=== PATIENT | male | born 1945 | race Caucasian/White ===

== ENCOUNTER 2023-11-10 13:16 | Emergency (ER) | payer MEDICARE, BC, SELFPAY ==
[2023-11-10 13:17] VITALS: BP 169/80
--- NOTE | 2023-11-10 15:18 | ED.GENMED ---
History of Present Illness
<Majo Swanson PA-C - Last Filed: 11/10/23 21:16>
General
Chief Complaint: DVT/Possible Blood Clot
Source: patient
Exam Limitations: none
Time Seen by Provider: 11/10/23 14:18
Nursing documentation reviewed up to this point in time: agreed with
Travel History
Have you had any contact with someone who has COVID-19?: No
Do you have any symptoms of coronavirus? Fever > 100 degrees, chills, cough, shortness of breath, sore throat, loss of taste or smell, muscle aches, or headache?: No
History of Present Illness
History of Present Illness:
Patient is a 78 old male with history hypertension, hyperlipidemia, aortic stenosis presenting for evaluation of left lower extremity pain and swelling. Patient states he initially noticed symptoms approximate 3 days ago. He states that 3 days ago
he did go for a longer walk than usual and was doing uphill/downhill lunges. Then that night following he had a 'Connex[employer] horse 'in the middle the night. Since then�he endorses pain on the medial aspect of his left calf worse with movement and
dorsiflexion of left foot. He has noticed swelling in his left lower extremity worsening over the past few days. He states pain is generally better in the morning and worse by the end of the day. Patient denies any fever, chills, chest pain,
shortness of breath. Patient denies any numbness or tingling left lower extremity. Patient did speak with his primary care provider who recommended that he come to the emergency department to rule out a blood clot.
Patient has no personal or family history of blood clots or clotting disorders. Patient denies any recent travel or recent surgery.
Past History
<Majo Swanson PA-C - Last Filed: 11/10/23 21:16>
Past History
ED Past Medical History: HTN and Hypercholesterolemia
Social History
Tobacco: Non-smoker
Review of Systems
<Majo Swanson PA-C - Last Filed: 11/10/23 21:16>
Review of Systems
Allergies reviewed?: Yes
All Other Systems: ROS reviewed and negative except as documented in HPI and ROS
Phy Exam
<Majo Swanson PA-C - Last Filed: 11/10/23 21:16>
Physical Exam
Physical Exam:
Vitals: Patient's vital signs are stable. Afebrile
General: Patient is well appearing, no acute distress. Nontoxic-appearing
Skin: Warm and dry, no rashes or lesions.
Head: Normocephalic, atraumatic
Eyes: Sclera nonicteric. EOMs intact. No nystagmus.
Throat: Protecting airway
Neck: Normal ROM, no cervical spine tenderness, no meningismus
Cardiac: Regular rate and rhythm, no murmurs.
Pulm: Normal respiratory effort, no wheezes, rales, rhonchi heard on exam.
Abdomen: No abdominal tenderness.
Extremities: 1+ pitting edema of left lower extremity with mild tenderness of left calf at medial aspect. Some firmness noted to right calf. Positive Homans' sign on left lower extremity. Great DP and PT pulses of bilateral lower extremities.
Sensation fully intact. No overlying erythema or ecchymoses of left lower extremity. Achilles intact.
Neuro: AAOx3. CN II-XII intact. No focal neurologic deficits.
Psychiatric: Normal affect.
Course
<Majo Swanson PA-C - Last Filed: 11/10/23 21:16>
Orders/Labs/Results
Orders:
Orders
11/10/23 13:22
Periph Venous Lwr Ext Left US [US Periph Venous LOWER Ext LT] Urgent
Comment:
Reason For Exam: swelling, calf pain
Vital Signs
Initial and Last Documented VS:
Initial Vital Signs
Temp Pulse Resp BP Pulse Ox
98.6 F 68 18 169/80 96
11/10/23 13:17 11/10/23 13:17 11/10/23 13:17 11/10/23 13:17 11/10/23 13:17
Last Documented Vital Signs
Temp Pulse Resp BP Pulse Ox
98.6 F 68 18 169/80 96
11/10/23 13:17 11/10/23 13:17 11/10/23 13:17 11/10/23 13:17 11/10/23 13:17
<Josh Mcpherson DO - Last Filed: 11/10/23 21:17>
Orders/Labs/Results
Orders:
Orders
11/10/23 13:22
Periph Venous Lwr Ext Left US [US Periph Venous LOWER Ext LT] Urgent
Comment:
Reason For Exam: swelling, calf pain
Vital Signs
Initial and Last Documented VS:
Initial Vital Signs
Temp Pulse Resp BP Pulse Ox
98.6 F 68 18 169/80 96
11/10/23 13:17 11/10/23 13:17 11/10/23 13:17 11/10/23 13:17 11/10/23 13:17
Last Documented Vital Signs
Temp Pulse Resp BP Pulse Ox
98.6 F 68 18 169/80 96
11/10/23 13:17 11/10/23 13:17 11/10/23 13:17 11/10/23 13:17 11/10/23 13:17
<Majo Swanson PA-C - Last Filed: 11/10/23 21:16>
MDM/Problems Addressed
Differential Diagnosis Includes:
Not limited to: DVT, dependent edema, muscular strain, muscular cramp, cellulitis
MDM/Problems Addressed:
78-year-old male presenting with left lower extremity swelling and pain worsening over the past 3 days. No known inciting injury, although patient did go for a longer walk and was doing lunges the day prior to symptom onset. No recent travel or
recent surgeries. No other DVT risk factors. No chest pain, shortness of breath. No fever or chills. Sent to rule out blood clot by PCP. Patient hypertensive, otherwise signs stable. Exam as above. Patient is very well-appearing. He does
have 1+ pitting edema of the left lower extremity with some mild tenderness and firmness noted on the medial aspect of left calf. There is no overlying erythema or warmth to suggest infectious process. No ecchymoses noted to left lower calf.
Great distal pulses in left lower extremity. Sensation fully intact. He has excellent range of motion in his left ankle against resistance, both dorsiflexion and plantarflexion. Achilles tendon intact. Will check LLE ultrasound. Will reassess
Ultrasound shows no evidence of DVT of the left lower extremity. They did note a fluid collection within the left calf likely reflecting muscle tear. This is consistent with patient's symptoms and mechanism. Discussed findings with patient.
Given patient has very minimal pain, is able to ambulate, and has great range of motion left lower extremity�do not feel splinting is necessary. Will recommend icing, elevation, rest. Return precautions discussed with patient. Patient is stable
for discharge. All questions answered
Chronic conditions affecting care:
N/A
Acute Exacerbation and/or Progression of Chronic Illness:
N/A
<Majo Swanson PA-C - Last Filed: 11/10/23 21:16>
*Radiology
Radiology exam reviewed: radiology read reviewed
*Pulse Oximetry
Patient hypoxic: no
*EKG
Interpreted by ED Provider?: NA
*Oil Well Service Operator Interpretation
Rate: Oil Well Service Operator- N/A
*Critical Care Note
Total Time (30-74mins, 75-104mins- exclusive of procedures): Not Applicable
ED Attending Note
<Majo Swanson PA-C - Last Filed: 11/10/23 21:16>
-
Portions of this chart may have been created with voice recognition software.� Occasional wrong word or��sound alike� substitutions may have occurred due to the inherent limitations of voice recognition software.
<Joshbouchra Pierce [place], DO - Last Filed: 11/10/23 21:17>
ED Attending Note
Patient seen and examined by attending physician: Yes
I performed the substantive portion of visit, reviewed & personally made and approve the management plan that is documented in note by myself or NAHID.: Yes
I performed a history and physical exam of patient and discussed management with resident, I reviewed resident's note and agree with documented findings and plan of care.: Yes
ED Attending Note:
I evaluated the bedside. Mild left calf swelling noted but he has excellent active range of motion into dorsiflexion and plantarflexion. No evidence for cellulitis
Discharge Plan
Departure
Patient Disposition: Home (Routine Discharge)
Date of Disposition: 11/10/23
Time of Disposition: 16:19
Patient with high blood pressure during this ER visit?: Yes
Condition: Good
Covid-19: Not Applicable
Discharge Problem:
Swelling of left lower extremity
Instructions: Lower Extremity Muscle Strain (DC), BLOOD PRESSURE
Prescriptions:
No Action
aspirin 81 MG tablet,chewable
81 mg PO QPM
coenzyme Q10 [Co Q-10] 200 MG capsule
200 mg PO QPM
hydrochlorothiazide 12.5 MG tablet
12.5 mg PO QPM
rosuvastatin 20 MG tablet
20 mg PO QPM Qty: 30 5RF
nitroglycerin 0.4 MG tablet, sublingual
0.4 mg sublingual [id number] PRN (Reason: chest pain) Qty: 25 5RF
Patient Comments:
never took it
clopidogrel 75 MG tablet
75 mg PO QPM
acetaminophen 325 MG tablet
650 mg PO Q4HPRN PRN (Reason: [place], mild pain, or fever >101F) 0RF
amlodipine-benazepril 1 EACH capsule
1 ea PO QPM Qty: 0 0RF
Rx Instructions:
Do not take 06/30/21, Resume evening on 07/01/21
Referrals:
Carlos Manuel Young MD [Family Provider] - Follow up in 5-7 days
Activity Restrictions/Additional Instructions:
RETURN TO THE EMERGENCY DEPARTMENT WITH ANY FEVERS, CHILLS, CHEST PAIN, SHORTNESS OF BREATH, SIGNIFICANT WORSENING IN SWELLING OR PAIN IN LOWER EXTREMITY, NUMBNESS/TINGLING IN LEFT LOWER EXTREMITY
-As discussed�there is no evidence of blood clot on your ultrasound performed the emergency department. Your symptoms are likely related to a muscle strain/tear. You should keep your leg ice and elevated as often as possible. You can take Tylenol
as needed for discomfort. You should refrain from any strenuous exercise as muscle strain continues to heal.
-Follow-up with your primary care physician for further evaluation/management
Interventions
Interventions:
*Nursing Disposition Last Done: 11/10/23 17:03
ED- Cardiac Assessment Last Done: 11/10/23 15:23
ED- Pulmonary Assessment Last Done: 11/10/23 15:23
ED-Skin Assessment Last Done: 11/10/23 15:23
Discharge Date and Time
Discharge Date/Time: 11/10/23 17:03
Print Language: SWEDISH
== END 2023-11-10 17:03 | disposition home or self-care (01) ==
LOC: EMR 13:16
PROVIDERS: EMERGENCY PHYSICIAN Emergency Medicine; FAMILY PHYSICIAN Family Medicine
DX: M79.662 Pain in left lower leg (principal); I10 Essential (primary) hypertension; E78.00 Pure hypercholesterolemia, unspecified; I35.0 Nonrheumatic aortic (valve) stenosis
CPT/HCPCS: 99284; 93971

== ENCOUNTER → 2023-11-15 11:04 | Outpatient (REF) | payer MEDICARE, BC, SELFPAY | LOC: RCS 11:04 | PROVIDERS: ATTENDING PHYSICIAN Nurse Practitioner; FAMILY PHYSICIAN Family Medicine | DX: I25.119 Atherosclerotic heart disease of native coronary artery with unspecified angina pectoris (principal); Z95.2 Presence of prosthetic heart valve | CPT/HCPCS: 93306 ==

== ENCOUNTER → 2023-11-21 12:16 | Outpatient (REF) | payer MEDICARE, BC, SELFPAY ==
[2023-11-21 13:26] LABS: Blood Urea Nitrogen 16 mg/dl (9-20); Calcium 9.4 mg/dl (8.4-10.2); Carbon Dioxide 25 mmol/L (22-30); Chloride 103 mmol/L (98-107); Glucose 114 mg/dl (70-99); Potassium 4.3 mmol/L (3.5-5.1); Sodium 137 mmol/L (135-145); eGFR > 60.00
== END ==
LOC: REG 12:16
PROVIDERS: ATTENDING PHYSICIAN Internal Medicine
DX: I10 Essential (primary) hypertension (principal)
CPT/HCPCS: 36415; 80048

== ENCOUNTER → 2023-11-26 12:28 | Outpatient (REF) | payer MEDICARE, BC, SELFPAY | LOC: HWRAD 12:28 | PROVIDERS: ATTENDING PHYSICIAN Internal Medicine; FAMILY PHYSICIAN Family Medicine | DX: I10 Essential (primary) hypertension (principal); I71.9 Aortic aneurysm of unspecified site, without rupture | CPT/HCPCS: 71275; Q9967 ==

== ENCOUNTER → 2024-05-19 10:07 | Outpatient (REF) | payer MEDICARE, BC, SELFPAY ==
[2024-05-19 10:56] LABS: ALT (SGPT) 40 U/L (0-50); AST (SGOT) 35 U/L (17-59); Albumin 5.1 g/dl (3.5-5.0); Alkaline Phosphatase 74 U/L (38-126); Blood Urea Nitrogen 22 mg/dl (9-20); Calcium 9.2 mg/dl (8.4-10.2); Carbon Dioxide 24 mmol/L (22-30); Chloride 98 mmol/L (98-107); Glucose 123 mg/dl (70-99); HDL Cholesterol 78 mg/dl; LDL Cholesterol, Calculated 80 mg/dl; Potassium 4.2 mmol/L (3.5-5.1); Sodium 134 mmol/L (135-145); Total Cholesterol 169 mg/dl (50-199); Triglyceride 57 mg/dl (10-149); Very Low Density Lipoprotein 11 mg/dl (0-30); eGFR > 60.00
== END ==
LOC: RAD 10:07
PROVIDERS: ATTENDING PHYSICIAN Nurse Practitioner
DX: I25.119 Atherosclerotic heart disease of native coronary artery with unspecified angina pectoris (principal); I10 Essential (primary) hypertension; I71.21 Aneurysm of the ascending aorta, without rupture
CPT/HCPCS: 36415; 80053; 80061

== ENCOUNTER → 2024-11-05 12:55 | Outpatient (REF) | payer MEDICARE, BC, SELFPAY | LOC: RCS 12:55 | PROVIDERS: ATTENDING PHYSICIAN Internal Medicine; FAMILY PHYSICIAN Family Medicine | DX: I25.119 Atherosclerotic heart disease of native coronary artery with unspecified angina pectoris (principal); Z95.2 Presence of prosthetic heart valve; I44.7 Left bundle-branch block, unspecified; I77.810 Thoracic aortic ectasia | CPT/HCPCS: 93306 ==

== ENCOUNTER → 2024-12-31 09:45 | Outpatient (REF) | payer MEDICARE, BC, SELFPAY ==
[2024-12-31 13:06] LABS: ALT (SGPT) 36 U/L (0-50); AST (SGOT) 30 U/L (17-59); Albumin 4.6 g/dl (3.5-5.0); Alkaline Phosphatase 83 U/L (38-126); Blood Urea Nitrogen 19 mg/dl (9-20); Calcium 9.0 mg/dl (8.4-10.2); Carbon Dioxide 25 mmol/L (22-30); Chloride 100 mmol/L (98-107); Glucose 110 mg/dl (70-99); HDL Cholesterol 66 mg/dl; LDL Cholesterol, Calculated 72 mg/dl; Potassium 4.1 mmol/L (3.5-5.1); Sodium 135 mmol/L (135-145); Total Protein 8.4 g/dl (6.3-8.2); Very Low Density Lipoprotein 10 mg/dl (0-30); eGFR > 60.00
== END ==
LOC: EMG 09:45
PROVIDERS: ATTENDING PHYSICIAN Physical Medicine & Rehabilitation; FAMILY PHYSICIAN Family Medicine; OTHER PHYSICIAN Internal Medicine
DX: Z98.1 Arthrodesis status (principal); M48.061 Spinal stenosis, lumbar region without neurogenic claudication; M54.16 Radiculopathy, lumbar region; R20.2 Paresthesia of skin; R20.0 Anesthesia of skin; I25.119 Atherosclerotic heart disease of native coronary artery with unspecified angina pectoris
CPT/HCPCS: 36415; 80053; 80061; 95886; 95911